=== PATIENT | male | born 1985 | race African-American/Black ===

== ENCOUNTER 2020-01-01 18:22 | Observation (INO) ==
[2020-01-01] MEDS ORDERED: ASPIRIN 325 MG TABLET PO STA (18:52)
[2020-01-01 19:04] LABS: Basophils % 0.3 % (0.0-0.8); Eosinophils % 0.4 % (0.00-10.9); Hematocrit 45.6 VOL% (42.0-52.0); Hemoglobin 14.8 GM/DL (14.0-18.0); Immature Granulocytes % 0.3 %; Immature Granulocytes Absolute 0.03 #; Lymphocytes # 1.9 10*3/uL (1.4-4.0); Lymphocytes % 17.9 % (21.2-54.2); Mean Corpuscular HGB Conc 32.5 GM/DL (32-36); Mean Corpuscular Volume 94.2 FL (87-102); Mean Platelet Volume 10.4 FL (9.6-12.0); Monocytes % 10.1 % (1.7-12.7); Platelet Count 200 T/CUMM (130-400); Red Blood Count 4.84 MC/CUMM (3.8-5.5); Red Cell Distribution Width 11.2 % (9.3-17.3); White Blood Count 10.4 T/CUMM (4-12)
[2020-01-01] MEDS ORDERED: IBUPROFEN 200 MG TABLET PO STA (19:10)
[2020-01-01 19:11] LABS: INR 1.1; PT Patient Result 11.6 SECS (9.8-11.9)
[2020-01-01 19:14] LABS: Albumin 4.4 G/DL (3.4-5.0); Bilirubin,Total 1.3 MG/DL (0.2-1.0); Osmolality,Calculated 267.2 MOS/KG (273-304); Total Protein 8.1 G/DL (6.4-8.3)
[2020-01-01] MEDS ORDERED: IBUPROFEN 600 MG TABLET PO STA (19:14)
[2020-01-01] MEDS ORDERED: FAMOTIDINE 20 MG TABLET PO STA (19:36)
[2020-01-01 19:53] LABS: Barbiturates Screen,Urine Negative (Negative); Benzodiazepines Screen,Urine Negative (Negative); Cannabinoid Screen,Urine Positive (Negative); Opiate Screen,Urine Positive (Negative); Phencyclidine Screen,Urine Negative (Negative)
[2020-01-01] MEDS ORDERED: SODIUM CHLORIDE 0.9% 1,000 ML IV STA (19:53)
[2020-01-01] MEDS ORDERED: ONDANSETRON 4 MG/2 ML VIAL IV PRN (20:12)
[2020-01-01] MEDS ORDERED: ZALEPLON 5 MG CAPSULE PO PRN (20:12)
[2020-01-01] MEDS ORDERED: MORPHINE 4 MG/1 ML VIAL IV PRN (20:12)
[2020-01-01] MEDS ORDERED: KETOROLAC 30 MG/1 ML VIAL IV PRN (20:19)
[2020-01-01 20:33] LABS: Ferritin 146.9 ng/ml (26-388)
[2020-01-01] MEDS ORDERED: ALUM/MAG/SIMETH/LIDO VISC 1:1 30 ML BOTTLE PO ONE (21:03)
[2020-01-01] MEDS: PANTOPRAZOLE 40 MG TABLET PO SCH (22:47)
[2020-01-01] MEDS: ENOXAPARIN 40 MG/0.4 ML SYRINGE SUBCUT SCH ×2 (22:48→22:57)
[2020-01-01] MEDS: SODIUM CHLORIDE 0.9% 1,000 ML IV SCH (22:53)
[2020-01-02 01:38] LABS: Basophils % 0.5 % (0.0-0.8); Eosinophils # 0.1 10*3/uL (0.0-0.87); Eosinophils % 0.8 % (0.00-10.9); Hemoglobin 11.8 GM/DL (14.0-18.0); Immature Granulocytes % 0.5 %; Immature Granulocytes Absolute 0.03 #; Lymphocytes # 2.1 10*3/uL (1.4-4.0); Lymphocytes % 32.7 % (21.2-54.2); Mean Corpuscular HGB Conc 31.9 GM/DL (32-36); Mean Corpuscular Volume 95.4 FL (87-102); Mean Platelet Volume 10.1 FL (9.6-12.0); Neutrophils % 52.5 % (38.7-73.9); Platelet Count 170 T/CUMM (130-400); Red Blood Count 3.88 MC/CUMM (3.8-5.5); Red Cell Distribution Width 11.3 % (9.3-17.3); White Blood Count 6.5 T/CUMM (4-12)
[2020-01-02 01:50] LABS: Albumin 3.3 G/DL (3.4-5.0); Bilirubin,Total 1.2 MG/DL (0.2-1.0); Calcium 8.1 MG/DL (8.5-10.1); Risk Ratio 3.78; Thyroid Stimulating Hormone 1.6 uIU/ml (0.358-3.74); Total Protein 6.4 G/DL (6.4-8.3); VLDL CHOLESTEROL 13.8 MG/DL
[2020-01-02] MEDS: SODIUM CHLORIDE 0.9% 1,000 ML IV SCH (04:02)
[2020-01-02] MEDS ORDERED: PANTOPRAZOLE 40 MG TABLET PO SCH (09:00)
[2020-01-02] MEDS ORDERED: ASPIRIN EC 325 MG TABLET PO SCH (09:00)
[2020-01-02] MEDS: SUCRALFATE 1 GM TABLET PO SCH ×2 (09:06→12:36)
[2020-01-02] MEDS: PANTOPRAZOLE 40 MG TABLET PO SCH (09:07)
[2020-01-02] MEDS ORDERED: COLCHICINE 0.6 MG CAPSULE PO SCH (11:30)
[2020-01-02 12:05] VITALS: BP 150/54
== END 2020-01-02 13:25 | disposition home or self-care (01) ==
LOC: EDUNIT# → N.ED 18:22 → N.EDINP 20:12 → INTOOBSV 20:12 → N.TELEN 22:12
PROVIDERS: ADMIT Internal Medicine; ATTEND Internal Medicine

== ENCOUNTER 2020-04-13 18:35 | Inpatient (IN) ==
[2020-04-13 21:40] LABS: Basophils % 0.5 % (0.0-0.8); Eosinophils # 0.1 10*3/uL (0.0-0.87); Eosinophils % 0.9 % (0.00-10.9); Hematocrit 43.5 VOL% (42.0-52.0); Hemoglobin 13.9 GM/DL (14.0-18.0); Immature Granulocytes % 0.3 %; Immature Granulocytes Absolute 0.02 #; Lymphocytes % 26.2 % (21.2-54.2); Monocytes % 8.2 % (1.7-12.7); Neutrophils % 63.9 % (38.7-73.9); Platelet Count 223 T/CUMM (130-400); Red Blood Count 4.53 MC/CUMM (3.8-5.5); Red Cell Distribution Width 11.4 % (9.3-17.3); White Blood Count 7.7 T/CUMM (4-12)
[2020-04-13 21:58] LABS: Albumin 4.5 G/DL (3.4-5.0); Bilirubin,Total 1.1 MG/DL (0.2-1.0); Calcium 9.3 MG/DL (8.5-10.1); Osmolality,Calculated 270.8 MOS/KG (273-304); Total Protein 8.1 G/DL (6.4-8.3)
[2020-04-14] MEDS ORDERED: SODIUM CHLORIDE 0.9% 1,000 ML IV STA (00:46)
[2020-04-14] MEDS ORDERED: ONDANSETRON 4 MG/2 ML VIAL IV STA (00:46)
[2020-04-14] MEDS ORDERED: ALUM/MAG/SIMETH/LIDO VISC 1:1 30 ML BOTTLE PO STA (00:46)
[2020-04-14] MEDS ORDERED: PANTOPRAZOLE 40 MG VIAL IV STA (00:46)
[2020-04-14] MEDS ORDERED: HYDROmorphone 2 MG/1 ML VIAL IV STA (00:46)
[2020-04-14] MEDS ORDERED: DEXTROSE 50% 25 GM/50 ML VIAL IV PRN (02:19)
[2020-04-14] MEDS ORDERED: ALUMINUM/MAGNES/SIMETH MAX STR 30 ML UDCUP PO PRN (02:19)
[2020-04-14] MEDS ORDERED: hydrALAZINE 20 MG/1 ML VIAL IV PRN (02:19)
[2020-04-14] MEDS ORDERED: GLUCAGON 1 MG VIAL IM PRN (02:19)
[2020-04-14] MEDS ORDERED: MORPHINE 4 MG/1 ML VIAL IV PRN (02:19)
[2020-04-14] MEDS ORDERED: NICOTINE 21 MG/24 HR PATCH TRANSDERM PRN (02:19)
[2020-04-14 02:39] LABS: Risk Ratio 3.22; VLDL CHOLESTEROL 23.4 MG/DL
[2020-04-14] MEDS: ACETAMINOPHEN 325 MG TABLET PO PRN ×2 (04:58→17:11)
[2020-04-14] MEDS: SODIUM CHLORIDE 0.9% 1,000 ML IV SCH ×5 (04:58→21:47)
[2020-04-14] MEDS: ONDANSETRON 4 MG/2 ML VIAL IV PRN (04:59)
[2020-04-14 06:05] LABS: Apearance,Urine CLEAR (Clear); Bacteria,Urine Occasional /HPF (Few); Bilirubin,Urine Negative (Negative); Blood, Urine Negative (Negative); Glucose,Urine (UA) Negative (Negative); Ketones,Urine 20 mg/dL (Negative); Mucus,Urine Occasional /LPF (Occasional); Nitrite,Urine Negative (Negative); Protein,Urine Negative; RBC,Urine 1 /HPF (0-4); Squamous Epithelial Cell,Urine Occasional /HPF (0-10); Urine Color Yellow (Yellow); Urine Specific Gravity > 1.060 (1.001-1.035); WBC,Urine <1 /HPF (0-6)
[2020-04-14 07:50] LABS: Barbiturates Screen,Urine Negative (Negative); Benzodiazepines Screen,Urine Negative (Negative); Cannabinoid Screen,Urine Positive (Negative); Opiate Screen,Urine Positive (Negative); Phencyclidine Screen,Urine Negative (Negative)
[2020-04-14] MEDS: DICYCLOMINE 10 MG CAPSULE PO SCH ×2 (17:10→21:19)
[2020-04-15] MEDS: SODIUM CHLORIDE 0.9% 1,000 ML IV SCH ×3 (02:09→11:38)
[2020-04-15] MEDS: ONDANSETRON 4 MG/2 ML VIAL IV PRN ×2 (03:04→07:54)
[2020-04-15] MEDS: DICYCLOMINE 10 MG CAPSULE PO SCH (08:00)
[2020-04-15] MEDS: ACETAMINOPHEN 325 MG TABLET PO PRN (09:31)
[2020-04-15 12:00] VITALS: BP 140/81
== END 2020-04-15 11:40 | disposition home or self-care (01) | DRG 392 ==
LOC: N.ED 18:35 → N.EDINP 18:35 → N.3E 04-14 02:54
PROVIDERS: ADMIT Hospitalist; ATTEND Hospitalist

== ENCOUNTER 2020-08-29 19:42 | Observation (INO) ==
[2020-08-30] MEDS ORDERED: MORPHINE 4 MG/1 ML VIAL IV ONE (00:52)
[2020-08-30] MEDS ORDERED: SODIUM CHLORIDE 0.9% 1,000 ML IV STA (00:52)
[2020-08-30] MEDS ORDERED: ONDANSETRON 4 MG/2 ML VIAL IV STA (00:52)
[2020-08-30] MEDS ORDERED: ALUM/MAG/SIMETH/LIDO VISC 1:1 30 ML BOTTLE PO STA (01:13)
[2020-08-30] MEDS ORDERED: PANTOPRAZOLE 40 MG VIAL IV STA (01:13)
[2020-08-30 01:32] LABS: Basophils % 0.4 % (0.0-0.8); Eosinophils % 0.1 % (0.00-10.9); Hematocrit 45.6 VOL% (42.0-52.0); Hemoglobin 14.8 GM/DL (14.0-18.0); Immature Granulocytes % 0.3 %; Immature Granulocytes Absolute 0.02 #; Lymphocytes # 0.9 10*3/uL (1.4-4.0); Lymphocytes % 12.9 % (21.2-54.2); Mean Corpuscular HGB Conc 32.5 GM/DL (32-36); Mean Corpuscular Volume 93.6 FL (87-102); Mean Platelet Volume 10.4 FL (9.6-12.0); Monocytes % 4.9 % (1.7-12.7); Neutrophils % 81.4 % (38.7-73.9); Platelet Count 212 T/CUMM (130-400); Red Blood Count 4.87 MC/CUMM (3.8-5.5); Red Cell Distribution Width 11.4 % (9.3-17.3); White Blood Count 7.2 T/CUMM (4-12)
[2020-08-30 01:52] LABS: Albumin 4.7 G/DL (3.4-5.0); Bilirubin,Total 1.3 MG/DL (0.2-1.0); Calcium 9.3 MG/DL (8.5-10.1); Total Protein 8.3 G/DL (6.4-8.3)
[2020-08-30] MEDS ORDERED: SODIUM CHLORIDE 0.9% 1,000 ML IV SCH (03:49)
[2020-08-30] MEDS ORDERED: ONDANSETRON 4 MG/2 ML VIAL IV PRN (03:49)
[2020-08-30] MEDS ORDERED: ACETAMINOPHEN 325 MG TABLET PO PRN (03:49)
[2020-08-30] MEDS ORDERED: HYDROmorphone 2 MG/1 ML VIAL IV PRN (03:49)
[2020-08-30 04:23] LABS: Basophils % 0.3 % (0.0-0.8); Hematocrit 42.8 VOL% (42.0-52.0); Hemoglobin 13.8 GM/DL (14.0-18.0); Immature Granulocytes % 0.3 %; Immature Granulocytes Absolute 0.02 #; Lymphocytes # 1.3 10*3/uL (1.4-4.0); Lymphocytes % 18.4 % (21.2-54.2); Mean Corpuscular HGB Conc 32.2 GM/DL (32-36); Mean Corpuscular Volume 96.2 FL (87-102); Mean Platelet Volume 9.8 FL (9.6-12.0); Monocytes % 6.5 % (1.7-12.7); Neutrophils % 74.5 % (38.7-73.9); Platelet Count 211 T/CUMM (130-400); Red Blood Count 4.45 MC/CUMM (3.8-5.5); Red Cell Distribution Width 11.4 % (9.3-17.3); White Blood Count 7.2 T/CUMM (4-12)
[2020-08-30 04:43] LABS: Bilirubin,Total 0.7 MG/DL (0.2-1.0); Calcium 8.4 MG/DL (8.5-10.1); Total Protein 7.2 G/DL (6.4-8.3)
[2020-08-30] MEDS ORDERED: PANTOPRAZOLE 40 MG VIAL IV SCH (09:00)
[2020-08-30 11:14] VITALS: BP 104/54
== END 2020-08-30 11:09 | disposition home or self-care (01) ==
LOC: N.EDINP 19:42 → N.ED 19:42 → N.EDINP 08-30 11:09
PROVIDERS: ADMIT Surgery; ATTEND Surgery